=== PATIENT | male | born 1965 | race Caucasian/White ===

== ENCOUNTER 2020-06-24 15:29 | Emergency (ER) | payer BC ==
[~2020-06-24] VITALS: Ht 177.8 cm; Wt 95.3 kg
[2020-06-24] MEDS ORDERED: ANAPROX DS550 MG PO (17:57)
[2020-06-24] MEDS ORDERED: METHOCARBAMOL500 M1 PO (17:57)
[2020-06-24 18:45] LABS: BASO % 0.2 % (0.0-1.0); LYMPH # 0.7 10*3/uL (1.3-4.4); MEAN CELL VOLUME 97.8 fl (80.0-94.0); MEAN CORPUSCULAR HGB CONC 33.8 g/dl (33.0-37.0); MEAN PLATELET VOLUME 10.9 fl (9.6-12.3); MONO % 5.4 % (3.0-9.0); NEUT # 16.5 10*3/uL (2.3-7.9); NEUT % 89.5 % (47.0-73.0); PLATELET COUNT AUTOMATED 236 10*3/uL (130-400); RED BLOOD COUNT 4.91 10*6/uL (4.50-5.90); RED CELL DISTRI WIDTH 12.9 % (0-14.5); WHITE BLOOD COUNT 18.4 10*3/uL (4.8-10.8)
[2020-06-24 18:58] LABS: ACT PARTIAL THROMBO TIME 28.1 SECONDS (20.0-32.1)
[2020-06-24 19:01] LABS: ALBUMIN 3.4 gm/dl (3.1-4.5); ALKALINE PHOSPHATASE 83 U/L (45-117); BUN 13 mg/dl (7-24); CHLORIDE 104 mmol/L (98-107); CREATININE 1.89 mg/dL (0.70-1.30); POTASSIUM 4.1 mmol/L (3.5-5.1); SGOT/AST 10 IU/L (3-35); SGPT/ALT 33 U/L (12-78); SODIUM 137 mmol/L (136-145); TOTAL PROTEIN 7.6 gm/dL (6.4-8.2)
[2020-06-24 19:02] LABS: TROPONIN I < 0.015 ng/ml (<0.045)
== END 2020-06-24 21:24 | disposition short-term general hospital (02) ==
LOC: ED 15:29
PROVIDERS: Physician Assistant
DX: I71.3 Abdominal aortic aneurysm, ruptured (principal); I10 Essential (primary) hypertension; Z86.73 Personal history of transient ischemic attack (TIA), and cerebral infarction without residual deficits